=== PATIENT | male | born 1995 | race Caucasian/White ===

== ENCOUNTER 2023-10-15 08:47 | Emergency (ER) | payer BC, SELFPAY ==
[2023-10-15] VITALS (8 sets, daily range): BP systolic 129–153; BP diastolic 71–98; PULSE 90–114; RESP 18–28; TEMP 37.1; O2SAT 95–100
--- NOTE | ~2023-10-15 | XR_ITS ---
EXAMINATION: XR chest 2V DATE: 10/15/2023 09:06 INDICATION: Chest pain. Hypertension. TECHNIQUE: Frontal and lateral views of the chest were obtained. COMPARISON: None. FINDINGS: There is no pneumonia, pleural effusion, or pneumothorax. The heart size is normal. IMPRESSION: 1. No acute cardiopulmonary disease. Reviewed, dictated and finalized at location A.
--- NOTE | 2023-10-15 08:49 | ECG_ITS ---
Test Date: 2023-10-15 08:52:44 Measurements Intervals [place] Rate: 108 P: 42 [place]: 148 QRS: -17 QRSD: 104 T: 29 QT: 326 QTc: 437 Interpretive Statements SINUS TACHYCARDIA INCOMPLETE RIGHT BUNDLE BRANCH BLOCK DELAYED PRECORDIAL R/S TRANSITION ABNORMAL ECG No previous ECG available for comparison Electronically Signed On 10-15-2023 09:16:14 CDT by Clive Hamm D.O.
[2023-10-15 09:06] LABS: Basophils Percent Auto 0.2 % (0.2-1.2); Eosinophils Absolute Auto 0.1 K/mm3 (0-0.3); Eosinophils Percent Auto 0.4 % (0-4.4); Hematocrit 43.1 % (42.0-52.0); Hemoglobin 14.6 g/dL (14.0-18.0); Immature Granulocyte Absolute 0.03 K/mm3 (0.00-0.031); Immature Granulocyte Percent A 0.3 % (0-0.5); Lymphocytes Percent Auto 30.1 % (18.3-44.2); Mean Corpuscular HGB Conc 33.9 g/dl (32-36); Mean Corpuscular Hemoglobin 29.6 pg (26-34); Mean Corpuscular Volume 87.4 fl (80-100); Mean Platelet Volume 10.7 fl (7.4-10.4); Monocytes Percent Auto 8.3 % (2.6-8.5); Neutrophils Absolute Auto 7.1 K/mm3 (1.3-6.7); Neutrophils Percent Auto 60.7 % (45.5-73.1); Platelet Count Result 216 k/mm3 (150-375); Red Blood Count 4.93 M/mm3 (4.6-6.20); Red Cell Distribution Width 13.1 % (11.5-14.5); White Blood Count 11.6 K/mm3 (4.5-10.0)
[2023-10-15 09:18] LABS: Alanine Aminotransferase 74 U/L (6-50); Albumin Level 4.8 g/dL (3.5-5.1); Alkaline Phosphatase 69 U/L (38-126); Anion Gap 12 mmol/L (4-12); Aspartate Amino Transferase 43 U/L (17-59); Blood Urea Nitrogen 8 mg/dL (9-20); Calcium 9.3 mg/dL (8.4-10.2); Carbon Dioxide 27 mmol/L (22-30); Chloride 98 mmol/L (98-107); Estimated CRCL calculation 135 ml/min; Estimated Glomerular Filt Rate > 60; Glucose 101 mg/dL (65-110); Lipase 32 U/L (23-300); Potassium 3.6 mmol/L (3.4-5.0); Sodium 137 mmol/L (137-145)
[2023-10-15 09:19] LABS: Prothrombin Time 13.4 Seconds (11.1-14.7)
[2023-10-15 09:20] LABS: Partial Thromboplastin Time 28.4 Seconds (22.3-36.8)
[2023-10-15 09:28] LABS: Troponin I < 0.012 ng/mL (0.000-0.034)
[2023-10-15 09:41] LABS: D Dimer 0.41 ug/mL (<0.48)
--- NOTE | 2023-10-15 10:54 | ED.CHESTPAIN ---
HPI - Chest Pain General Chief Complaint: Chest Pain Stated Complaint: chest pain Time Seen by Provider: 10/15/23 09:12 Source: patient Mode of arrival: ambulatory Limitations: no limitations History of Present Illness HPI narrative: Patient is a 28-year-old male who presents the ED with report of chest pain. Patient reports he had mild pain in his right flank/side region last night. This pain was present with taking a deep breath. He then developed pain across his anterior chest this morning. Reports this pain is also present with taking deep breath. He then presented here for further evaluation. He reports he has recently seen a primary care doctor for elevated blood pressures, but is not currently on any medication for this yet. He denies recent long distance travel, history of CAD, history of blood clots. Denies lower extremity pain or swelling. Denies abdominal pain, nausea, vomiting. Denies fevers. He does report having an intermittent cough for the last few months. Related Data Allergies Allergy/AdvReac Type Severity Reaction Status Date / Time No Known Allergies Allergy Verified 10/15/23 08:47 Review of Systems Review of Systems: CONSTITUTIONAL: Denies fever, chills, or sweats. CARDIOVASCULAR: See HPI. RESPIRATORY: See HPI. GASTROINTESTINAL: Denies abdominal pain, nausea, vomiting MUSCULOSKELETAL: Denies back pain, extremity pain, myalgia. All systems reviewed & are unremarkable except as noted in HPI and below Exam Narrative: GENERAL: Well appearing, obese with BMI of 37.2, non-toxic, in no acute distress. HEAD: Normocephalic, atraumatic. RESPIRATORY: Airway patent, respirations nonlabored. Clear to auscultation bilaterally, no rales, rhonchi, wheezing. CARDIOVASCULAR: Regular rate and rhythm without murmurs, rubs, or gallops. ABDOMINAL: Soft, no tenderness throughout abdomen, nondistended. Normoactive BS. MUSCULOSKELETAL: Moves all extremities. No gross deformities. Minimal tenderness midsternal region. No tenderness along ribcage. SKIN: Warm, dry, normal color. NEURO: A&O X3. Speech clear. PSYCHIATRIC: Appropriate mood and affect. Normal interaction. Course Vital Signs Vital signs: Vital Signs Temperature 98.8 F 10/15/23 08:51 Pulse Rate 114 H 10/15/23 08:51 Respiratory Rate 28 H 10/15/23 08:51 Blood Pressure 153/98 H 10/15/23 08:51 Pulse Oximetry 100 10/15/23 08:51 Oxygen Delivery Room Air 10/15/23 08:51 Temperature 98.8 F 10/15/23 08:51 Pulse Rate 97 10/15/23 13:07 Respiratory Rate 18 10/15/23 13:07 Blood Pressure 132/90 10/15/23 13:07 Pulse Oximetry 97 10/15/23 13:07 Oxygen Delivery Room Air 10/15/23 08:58 MDM - Chest Pain MDM Narrative Medical decision making narrative: HEART score = 1 based on RFs (BMI, HTN) EKG w/ incomplete RBBB, no significant ST changes Troponin negative X 2 D-dimer WNL CXR clear Low suspicion for ACS at this time. Discussed lab and imaging findings. Discussed possibility of musculoskeletal/chest wall pain. Patient felt to be stable for discharge home with close outpatient follow-up. Recommended close follow-up with PCP for further evaluation. He was given return precautions. He agrees with plan and feels comfortable with discharge home. Discharged in stable condition. Vital signs stable at time of D/C. Medical Records Data Attestation: I reviewed the patient's medical records. Lab Data Attestation: I reviewed the patient's lab results. 10/15/23 08:57 10/15/23 08:57 Labs: Lab Results 10/15/23 10/15/23 Range/Units 08:57 11:44 WBC 11.6 H (4.5-10.0) K/mm3 RBC 4.93 (4.6-6.20) M/mm3 Hgb 14.6 (14.0-18.0) g/dL Hct 43.1 (42.0-52.0) % MCV 87.4 (80-100) fl MCH 29.6 (26-34) pg MCHC 33.9 (32-36) g/dl RDW 13.1 (11.5-14.5) % Plt Count 216 (150-375) k/mm3 MPV 10.7 H (7.4-10.4) fl Immature Gran % (Auto) 0.3 (0-0.5) % Neut % (Auto)
--- NOTE | 2023-10-15 11:42 | ECG_ITS ---
Test Date: 2023-10-15 11:46:23 Measurements Intervals [place] Rate: 93 P: 33 [place]: 153 QRS: -22 QRSD: 92 T: 10 QT: 337 QTc: 420 Interpretive Statements SINUS RHYTHM DELAYED PRECORDIAL R/S TRANSITION BORDERLINE T WAVE ABNORMALITY- INFERIOR LEADS BASELINE ARTIFACT- I, III, AVL BORDERLINE ECG Compared to ECG 10/15/2023 08:52:44 HEART RATE HAS DECREASED Electronically Signed On 10-15-2023 12:11:38 CDT by Clive Hamm D.O.
[2023-10-15 12:13] LABS: Troponin I < 0.012 ng/mL (0.000-0.034)
== END 2023-10-15 13:08 | disposition home or self-care (01) ==
PROVIDERS: Student in an Organized Health Care Education/Training Program; Emergency Provider Physician Assistant
DX: R07.89 Other chest pain (principal); R00.0 Tachycardia, unspecified; I45.10 Unspecified right bundle-branch block; R94.31 Abnormal electrocardiogram [ECG] [EKG]
CPT/HCPCS: 36415; 71046; 80053; 83690; 84484; 85025; 85380; 85610; 85730; 93005; 99284